=== PATIENT | male | born 2000 | race Caucasian/White ===

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

== ENCOUNTER 2019-03-21 19:33 | Emergency (ER) | payer MEDICAID ==
[~2019-03-21] VITALS: Ht 175.3 cm; Wt 54.4 kg
--- NOTE | 2019-03-21 19:33 | NUR ---
PT AMBULATED FROM [facility] TO BED 12.
--- NOTE | 2019-03-21 19:35 | NUR ---
18/M PRESENTED TO ED BIBA C/O ANXIETY. STATES HE DRANK LAST NIGHT AND HAS INCREASED ANXIETY THROUGH THE DAY. EVEN UNLABORED BREATHING. NO SIGNS OF DISTRESS. O2 SAT 100%. VSS. DENIES HARM TO SELF. PT HAS MED HX OF ANXIETY. STATES HE TAKES MED FOR ANXIETY BUT DOESN'T REMEMBER THE NAME TO MED. DENIES ALLERGIES.
--- NOTE | 2019-03-21 19:50 | NUR ---
EKG PERFORMED AT BEDSIDE
[2019-03-21 19:53] VITALS: BP 145/81
[2019-03-21] MEDS ORDERED: LORazepam 1 MG TAB PO ONE (19:55)
[2019-03-21] MEDS ORDERED: NACL 0.9% 1,000 ML IV ONE (19:55)
--- NOTE | 2019-03-21 20:10 | NUR ---
PT MOVED TO BED 8
--- NOTE | 2019-03-21 20:17 | NUR ---
LAB AT BEDSIDE
--- NOTE | 2019-03-21 20:22 | NUR ---
BEDSIDE REPORT GIVEN TO TICO CUENCA.
[2019-03-21 20:28] LABS: BASOPHILS % (AUTO) 0.2 % (0.0-2.0); HEMOGLOBIN 15.3 g/dL (12.0-18.0); LYMPHOCYTES # (AUTO) 1.2 K/uL (2.0-11.5); LYMPHOCYTES % (AUTO) 10.8 % (20.5-51.1); MEAN CORPUSCULAR HEMOGLOBIN 30 pg (27-31); MEAN CORPUSCULAR HGB CONC 33 g/dL (33-37); MEAN CORPUSCULAR VOLUME 90.6 fL (80-94); MONOCYTES # (AUTO) 0.9 K/uL (0.8-1.0); MONOCYTES % (AUTO) 7.8 % (1.7-9.3); NEUTROPHILS % (AUTO) 81.2 % (42.2-75.2); PLATELET COUNT (AUTO) 225 K/uL (140-450); RED BLOOD CELL COUNT(AUTO) 5.18 MIL/uL (4.20-6.10); RED CELL DISTRIBUTION WIDTH 13.7 % (11.6-13.7); WHITE BLOOD COUNT (AUTO) 11.1 K/uL (4.5-11.0)
[2019-03-21 20:29] VITALS: BP 144/87
--- NOTE | 2019-03-21 20:31 | NUR ---
PATIENT ELOPED FROM FACILITY. DISCHARGE INSTRUCTIONS NOT GIVEN TO PATIENT. DR. WEEKS NOTIFIED.
[2019-03-21 20:41] LABS: ALBUMIN 4.7 g/dL (3.4-5.0); ANION GAP 15.5 (8-16); ASPARTATE AMINOTRANSFERASE 15 U/L (15-37); CARBON DIOXIDE 27.6 mmol/L (21-32); CHLORIDE 101 mmol/L (98-107); CREATININE 1.4 mg/dL (0.7-1.3); GFR ARICAN-AMERICAN 84 mL/min (>90); GLUCOSE 137 mg/dL (74-106); MAGNESIUM 1.8 mg/dL (1.8-2.4); POTASSIUM 3.1 mmol/L (3.5-5.1); SODIUM SERUM 141 mmol/L (136-145); TOTAL BILIRUBIN 0.5 mg/dL (0.0-1.0); UREA NITROGEN, BLOOD 12 mg/dL (7-18)
== END 2019-03-21 20:31 | disposition left against medical advice (07) ==
LOC: MED 19:33
DX: F41.9 Anxiety disorder, unspecified (principal); F10.129 Alcohol abuse with intoxication, unspecified
CPT/HCPCS: 36415; 80053; 83735; 85025; 93005; 99284; G0482; J7030

== ENCOUNTER 2019-05-02 03:27 | Emergency (ER) | payer MEDICAID ==
[~2019-05-02] VITALS: Ht 175.3 cm; Wt 54.4 kg
[2019-05-02 03:35] VITALS: BP 123/76
--- NOTE | 2019-05-02 03:35 | NUR ---
TO BED # 07 AMBULATORY
--- NOTE | 2019-05-02 03:50 | NUR ---
PATIENT PRESENTS TO ED WITH C/O URINARY BURNING X 1 DAY . PT STATES HX OF CHLAMYDIA WAS TREATED A YEAR AGO IN [place] . PATIENT DENIES N/V/D; SKIN IS PINK/WARM/DRY; AAOX4 WITH EVEN AND STEADY GAIT; LUNGS CLEAR BL; HR EVEN AND REGULAR; PT DENIES ANY FEVER, CP, SOB, OR COUGH AT THIS TIME; PATIENT STATES PAIN OF 5/10 AT THIS TIME; VSS; PATIENT POSITIONED FOR COMFORT; HOB ELEVATED; BEDRAILS UP X2; BED DOWN. ER MD MADE AWARE OF PT STATUS.
[2019-05-02] MEDS ORDERED: PHENAZOPYRIDINE 100 MG TAB PO ONE (04:00)
--- NOTE | 2019-05-02 04:06 | NUR ---
Patient being evaluated by physician at bedside.
[2019-05-02] MEDS ORDERED: AZITHROMYCIN 250 MG TAB PO ONE (04:20)
[2019-05-02] MEDS ORDERED: cefTRIAXone 250 MG in LIDOCAINE MPF 1% 0.9 ML IM ONE (04:20)
[2019-05-02 05:04] VITALS: BP 134/65
--- NOTE | 2019-05-02 05:04 | NUR ---
Patient discharged with v/s stable. Written and verbal after care instructions given and explained. Patient alert, oriented and verbalized understanding of instructions. Ambulatory with steady gait. All questions addressed prior to discharge. ID band removed. Patient advised to follow up with PMD. Rx of PYRIDIUM given. Patient educated on indication of medication including possible reaction and side effects. Opportunity to ask questions provided and answered.
[2019-05-05 07:04] LABS: CHLAMYDIA TRACHOMATIS AMP DNA POSITIVE (NEGATIVE)
== END 2019-05-02 05:05 | disposition home or self-care (01) ==
LOC: MED 03:27
DX: R30.0 Dysuria (principal)
CPT/HCPCS: 36415; 96372; 99283; J0696; J2001; 87491